=== PATIENT | female | born 1985 | race African-American/Black ===

== ENCOUNTER 2021-03-29 05:20 | Day surgery (SDC) | payer OTHER ==
[2021-03-28 11:34] VITALS: BMI 44.2
[2021-03-29] MEDS ORDERED: LIDOCAINE 1%/EPI 1:100000 (50 ML MULTI DOSE VIAL) ONE (08:27)
[2021-03-29] MEDS ORDERED: BUPIVACAINE HCL/PF 0.5% (5MG/ML) 10 ML VIAL ONE (08:27)
[2021-03-29] MEDS ORDERED: PROPOFOL 20 ML ONE (08:50)
[2021-03-29] MEDS ORDERED: LIDOCAINE HCL/PF 2% SDV 5ML VIAL ONE (08:50)
[2021-03-29] MEDS ORDERED: DEXAMETHASONE SOD PHOSPHATE 4 MG/1 ML VIAL ONE (08:50)
[2021-03-29] MEDS ORDERED: MIDAZOLAM HCL 2 MG/2 ML SINGLE DOSE VIAL ONE (08:50)
[2021-03-29] MEDS ORDERED: ONDANSETRON 4 MG/2 ML VIAL ONE (08:50)
[2021-03-29] MEDS ORDERED: KETOROLAC TROMETHAMINE 30 MG/1 ML VIAL ONE ×2 (09:13→10:07)
[2021-03-29] MEDS ORDERED: LIDOCAINE HCL 1%, 10 MG/ML (20ML VIAL) INF ONE (10:00)
[2021-03-29] MEDS ORDERED: BUPIVACAINE HCL/PF 0.5% (5 MG/ML) 30 ML VIAL IJ ONE (10:00)
[2021-03-29 11:52] VITALS: PULSE 86
[2021-03-29] MEDS ORDERED: ONDANSETRON 4 MG/2 ML VIAL IVPUSH PRN (11:57)
[2021-03-29] MEDS ORDERED: ACETAMINOPHEN 325 MG TABLET (FP) PO PRN (11:57)
[2021-03-29] MEDS ORDERED: IBUPROFEN 800 MG/8 ML IJ IVPB PRN (11:57)
[2021-03-29] MEDS ORDERED: oxyCODONE HCL 5 MG TABLET PO PRN ×2 (11:57)
[2021-03-29] MEDS ORDERED: LACTATED RINGERS SOLUTION 1,000 ML IV SCH (12:00)
[2021-03-29] MEDS ORDERED: ACETAMINOPHEN 325 MG TABLET (FP) ONE (12:01)
[2021-03-29] MEDS ORDERED: oxyCODONE HCL 5 MG TABLET PO ONE (12:10)
[2021-03-29] MEDS ORDERED: oxyCODONE HCL 5 MG TABLET ONE (12:10)
[2021-03-29 13:28] VITALS: BP 118/50; TEMP 98.4
== END 2021-03-29 13:46 | disposition home or self-care (01) ==
LOC: JASU-SURG 05:20
PROVIDERS: ATTEND Orthopaedic Surgery
PROC: 0SBC4ZZ Excision of Right Knee Joint, Percutaneous Endoscopic Approach (ICD-10-PCS; principal; 2021-03-29 09:00)
DX: M23.300 Other meniscus derangements, unspecified lateral meniscus, right knee (principal)
CPT/HCPCS: 81025; 94760